=== PATIENT | female | born 1965 | race Caucasian/White ===

== ENCOUNTER 2018-09-14 12:19 | Day surgery (SDC) | payer OTHER ==
[2018-09-14] MEDS ORDERED: MIDAZOLAM 1 MG/ML 2 ML INJ ×2 (15:45)
[2018-09-14] MEDS ORDERED: FENTAnyl 50 MCG/ML VIAL (15:45)
== END 2018-09-14 17:08 | disposition home or self-care (01) ==
LOC: GIL 12:19
DX: Z12.11 Encounter for screening for malignant neoplasm of colon (principal); E11.9 Type 2 diabetes mellitus without complications; I10 Essential (primary) hypertension; E66.9 Obesity, unspecified; Z68.36 Body mass index [BMI] 36.0-36.9, adult; K64.4 Residual hemorrhoidal skin tags
CPT/HCPCS: 45378; 82962